=== PATIENT | female | born 1985 | race African-American/Black ===

== ENCOUNTER 2021-04-30 11:09 | Outpatient (CLI) | payer OTHER, SELFPAY ==
--- NOTE | ~2021-04-30 | US_ITS ---
EXAMINATION: US OB <= 14 weeks fetus EXAM DATE: 04/30/2021 12:05 INDICATION: Abnormal BHCG's . 1st trimester. TECHNIQUE: Pelvic obstetrical transabdominal sonogram was performed by a technologist. There are mu ltiple grayscale and Doppler images available for interpretation. There are no earlier studies of th is gestation for comparison. FINDINGS: Uterus measures 10.0 x 4.2 x 5.6 cm, and is morphologically normal. Endometrial stripe me asures 10 mm, within normal limits, has trilaminar appearance. There is no free pelvic fluid. Right adnexa: The ovary measures 3.5 x 1.5 x 1.5 cm and is morphologically normal. Ovarian vascular f low confirmed. Left adnexa: The ovary measures 2.6 x 1.2 x 1.4 cm and is morphologically normal. Ovarian vascular fl ow confirmed. IMPRESSION: No intrauterine or extrauterine identified. Correlate with beta hCG or follow-u p ultrasound as indicated clinically. Reviewed, dictated and finalized at location A. IMPRESSION: No intrauterine or extrauterine identified. Correlate wit h beta hCG or follow-up ultrasound as indicated clinically.
== END 2021-04-30 11:10 | disposition home or self-care (01) ==
LOC: ANHIMG 11:12
PROVIDERS: PCP Obstetrics & Gynecology; Visit Provider Obstetrics & Gynecology
DX: O02.81 Inappropriate change in quantitative human chorionic gonadotropin (hCG) in early pregnancy (principal); Z3A.00 Weeks of gestation of pregnancy not specified
CPT/HCPCS: 76801